=== PATIENT | female | born 1990 | race Caucasian/White ===

== ENCOUNTER 2017-03-03 19:15 | Emergency (ER) | payer OTHER ==
[~2017-03-03] VITALS: Ht 154.9 cm; Wt 77.7 kg
[2017-03-03 22:20] VITALS: BP 120/80
== END 2017-03-03 22:20 | disposition home or self-care (01) ==
LOC: ED 19:15
DX: S29.012A Strain of muscle and tendon of back wall of thorax, initial encounter (principal); X50.0XXA Overexertion from strenuous movement or load, initial encounter; Y93.89 Activity, other specified; Y92.89 Other specified places as the place of occurrence of the external cause; Y99.8 Other external cause status; K08.89 Other specified disorders of teeth and supporting structures
CPT/HCPCS: J1885